=== PATIENT | female | born 1955 | race Caucasian/White ===

== ENCOUNTER 2023-02-09 13:46 | Outpatient (CLI) | payer OTHER, MEDICAID, SELFPAY ==
--- NOTE | 2023-02-09 13:15 | DI.RAD_ITS ---
Exam(s) XR SHOULDER RT COMPLETE 2+V EXAM: XR SHOULDER RT COMPLETE 2+V CLINICAL HISTORY: R shoulder pain. TECHNIQUE: 2D digital imaging was performed of the right shoulder. Two images were obtained. AP an d axillary views were obtained. COMPARISON: No exams were available for comparison FINDINGS: BONES: No acute fracture is present. No bony destructive lesion is seen. JOINTS: No dislocation present. Degenerative changes are seen at both the acromioclavicular and gleno humeral joints characterized by joint space narrowing and bony hypertrophy. The findings are most ma rked at the AC joint. SOFT TISSUE: There is a tiny well corticated osseous density at the glenohumeral joint. This appears old. IMPRESSION: Degenerative changes of the shoulder as described. DATA REPOSITORY: RADIATION DOSE DELIVERED:
== END 2023-02-09 13:47 | disposition home or self-care (01) ==
LOC: DIORS 13:46
PROVIDERS: PCP Family Medicine; Referring Provider Family Medicine; Visit Provider Student in an Organized Health Care Education/Training Program
DX: M75.101 Unspecified rotator cuff tear or rupture of right shoulder, not specified as traumatic (principal); M19.011 Primary osteoarthritis, right shoulder; M75.21 Bicipital tendinitis, right shoulder
CPT/HCPCS: 99204; 73030

== ENCOUNTER 2023-02-19 07:26 | Day surgery (SDC) | payer OTHER, MEDICAID, SELFPAY ==
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
--- NOTE | 2023-02-19 07:24 | W.PM.OP ---
Date of service: 02/19/23 Time of Service: 11:00 Operative Note Operative Note DATE OF PROCEDURE: 02/19/23 PRE-OP DIAGNOSIS: Right: 1. Rotator cuff tear 2. LHB tendinopathy 3. Bursitis 4. Impingement POST-OP DIAGNOSIS: same PROCEDURE: Right: 1. Rotator cuff repair, CPT# 58329. This involved repair of the [subscapularis and] supraspinatus using anchors and sutures to reattach the rotator cuff back to the footprint of the [lesser and] greater tuberosity. 2. Arthroscopic biceps tenodesis, CPT# 53218. This involved arthroscopically suturing and reattaching the long head of the biceps tendon to the proximal humerus at the superior margin of the bicipital groove with a screw at the correct tension. 3. Extensive debridement, CPT# 02160. This involved using arthroscopic hand instruments, power instruments, and radiofrequency instruments to release the long head of the biceps tendon and debride areas of labral tearing, synovitis[, and chondromalacia about the biceps groove] within the glenohumeral joint anteriorly, superiorly and posteriorly. 4. Subacromial decompression with partial acromioplasty, CPT# 13023. This involved using arthroscopic power instruments and a radiofrequency wand to complete a bursectomy and smooth the undersurface of the acromion. The reproductive healthcare assistant was medically required in order to help assist in techniques above, which require positioning the arm, holding the arthroscope, and manipulating multiple instruments and sutures at the same time. This cannot be done without the help of an experienced reproductive healthcare assistant. SURGEON: Nicolas Martin TOOL AND DIE DESIGNER: Coby Andino ANESTHESIA TYPE: General LMA/ETT and Primary Nerve Block Refer to Anesthesia Record ESTIMATED BLOOD LOSS: 10 PATHOLOGY: none sent COMPLICATIONS: None Patient was transported to: PACU Patient's condition: stable Implants: Arthrex: 4.75mm SwiveLocks x [ ] Indications: The patient was diagnosed with the above conditions and appropriately indicated for surgical intervention. Please see complete medical record for details. Findings: Exam under anesthesia: [] Glenohumeral joint: [] Subacromial space: [] Procedure Description: In the operating room, general anesthesia was induced. Bilateral shoulders were examined. The patient was positioned in the beachchair position. All bony prominences were well-padded. Preoperative antibiotics were administered. The shoulder was prepped and draped in the usual sterile fashion. The correct patient, procedure, and side of the procedure were all verified prior to incision. Starting through the posterior portal a standard complete diagnostic arthroscopy was performed of the glenohumeral joint including inspection of the long head of the biceps, anterior and superior labrum, subscapularis tendon, supraspinatus and infraspinatus tendons, and axillary recess. The glenoid and humeral head cartilage as well as the posterior labrum were inspected from an anterior viewing portal. Significant findings and interventions noted above. [The biceps tendon was released from the superior labrum using arthroscopic scissors]. [Insert subscap repair] [Insert arthroscopic biceps tenodesis] [Insert subacromial decompression] [Insert supraspinatus repair] The shoulder was drained of arthroscopic fluid. All portal sites were copiously irrigated. These incisions were closed using 3-0 Monocryl in a buried fashion and then covered with Mastisol, Steri-Strips, Xeroform, dry gauze, and ABDs. The dressings were covered and secured with Medipore tape. The operative extremity was placed into a sling for immobilization. The patient awoke from anesthesia without complication and was transferred to the recovery room in a stable condition.
[2023-02-19 08:11] VITALS: BP 94/78; PULSE 82; RESP 18; TEMP 36.3; O2SAT 95
[2023-02-19] MEDS: Lactated Ringers 1,000 ML 30 ML IV (08:57)
--- NOTE | 2023-02-19 09:01 | W.ANESPRE ---
General Info Date of Service Date Performed: 02/19/23 Height: 5 ft 1 in Weight: 72.5 kg Body Mass Index (BMI): 30.2 Surgical Procedure: Operation Date: 02/19/23 10:10 Proposed Procedure Side Surgeon p Shoulder Rotator Cuff Arthroscopic w/Extensive Debridement, Biceps Tenodesis, Subacromial Decompression and Possible Allograft Superior Capsular Reconstruction Right Nicolas Martin MD Meds Allergies and Home Medications Allergies Allergy/AdvReac Type Severity Reaction Status Date / Time penicillin V Allergy Verified 02/19/23 08:04 Home Medication Medication Instructions Recorded empagliflozin 10 mg tablet 10 mg PO DAILY 02/09/23 (Jardiance) lamotrigine 100 mg tablet 100 mg PO DAILY 02/09/23 (Lamictal) buspirone 10 mg tablet 10 mg PO TID 02/11/23 carvedilol 6.25 mg tablet 6.25 mg PO BID 02/11/23 diclofenac sodium 1 % topical gel 2 g topical QID 02/11/23 insulin aspart U-100 100 unit/mL 15 unit subcut TID 02/11/23 (3 mL) subcutaneous pen (Novolog FlexPen U-100 Insulin aspart) insulin detemir U-100 100 unit/mL 30 unit subcut QHS 02/11/23 (3 mL) subcutaneous pen (Levemir FlexTouch U-100 Insulin) lamotrigine 25 mg tablet (Lamictal) 50 mg PO DAILY 02/11/23 methylphenidate HCl 10 mg tablet 10 mg PO BID 02/11/23 modafinil 100 mg tablet 100 mg PO DAILY 02/11/23 omeprazole 20 mg capsule,delayed 20 mg PO DAILY 02/11/23 release vilazodone 10 mg tablet (Viibryd) 10 mg PO DAILY 02/11/23 aspirin 81 mg tablet,delayed 81 mg PO DAILY prevent blood clot 02/19/23 release 7 days #7 tabs dulaglutide 3 mg/0.5 mL 3 mg subcut QWEEK 02/19/23 [facility] metformin 1,000 mg tablet 1,000 mg PO BID 02/19/23 naproxen 250 mg tablet 250 - 500 mg PO BID PRN #40 tabs 02/19/23 oxycodone 5 mg tablet 5 - 10 mg PO Q4H PRN moderate to 02/19/23 severe pain #18 tabs Current Visit Medications: Current Medications Generic Name Dose Route Start Last Admin Trade Name Freq PRN Reason Stop Dose Admin Ringer's Solution 1,000 mls @ 30 mls/hr 02/19/23 06:00 02/19/23 08:57 IV 03/20/23 23:59 30 mls/hr INFUSION ADELFO Administration Cefazolin Sodium/Dextrose 2 gm in 50 mls @ 100 mls/hr 02/19/23 06:00 Ancef Duplex IVPB 03/20/23 23:59 PREOP ADELFO IV Miscellaneous Supplies 1 each 02/19/23 06:00 Iv Access IV 03/20/23 23:59 DIRECTED ADELFO Oxycodone HCl 0 mg 02/19/23 07:20 Oxycodone 5 Mg Tab PO Q3H PRN PRN Pain Sodium Chloride 0 ml 02/19/23 06:00 Normal Saline Flush 10 Ml Syr IV 03/20/23 23:59 PRN PRN Sodium Chloride 0 ml 02/19/23 06:00 Normal Saline 10 Ml Vial IJ 03/20/23 23:59 DIRECTED PRN Sterile Water 0 ml 02/19/23 06:00 Water,Injection,Sterile 10 Ml Vial IJ 03/20/23 23:59 DIRECTED PRN PFSH Active Problems Active Problems: Problem Status Onset Code Rotator cuff tear, right M75.101 Arthritis of right glenohumeral joint M19.011 Tendonitis of long head of biceps brachii of right shoulder M75.21 Medical History Medical History (Updated 02/19/23 @ 08:52 by Cy Perdomo) Diabetes type 2, controlled Sleep apnea Surgical History Surgical History (Updated 02/19/23 @ 08:18 by Cy Perdomo) Stented coronary artery Trigger finger of all digits of both hands Tobacco Smoking/Tobacco Use Status: Former Tobacco Use Alcohol Alcohol Intake: never Substance Use Substance use type: does not use Vital Signs and Lab Results Vital Signs Most Recent Vital Signs in EMR: Most Recent Vital Signs Temp Pulse Resp BP Pulse Ox 36.3 C L 82 18 94/78 L 95 02/19/23 08:11 02/19/23 08:11 02/19/23 08:11 02/19/23 08:11 02/19/23 08:11 Point of Care Results Point of Care Results: Finger Stick Blood Glucose 161 02/19/23 08:22 Lab Results Blood Type / Crossmatch: No Data to Display Complete Blood Count: No Data to Display Complete Metabolic Panel: No Data to Display Liver Function Panel: No Data to Display Coagulation Panel: No Data to Display Cardiac Panel: No Data to Display Arterial Blood Gas: No Data to Display Venous Blood Gas: No Data to Display Pancreas Panel: No Data to Display Thyroid Panel: No Data to Display Infectious Disease: No Data to Display Blood Cultures: No Data to Display Toxicology Panel: No Data to Display Anesthesia Assessment and Plan Anesthesia History Personal History: No History of Anesthesia Complications Family History: No Family History of Anesthesia Complications Exercise Tolerance Exercise Tolerance: Metabolic Equivalents>4 Pertinent Negatives Pertinent Negatives: No Symptoms of GERD, No Major Cardiovascular Symptoms or Complaints, No Major Pulmonary Symptoms or Complaints and No History of CVA/TIA Cardiac & Pulmonary Exam Cardiac Exam: Normal S1/S2 Heart Sounds Pulmonary Exam: Clear Bilateral Breath Sounds Implantable Cardiac Device Does patient have a Pacemaker or an ICD?: No Airway Exam Known Difficult Airway: No Mallampati Class: 2 Mouth Opening: Normal (> 3cm) Thyromental Distance: Greater than 3 cm Neck Range of Motion: Full ROM Neck Circumference: Normal Teeth Condition: Generalized Poor Dentition and Removable Dentures/Plates Upper Tooth Numberin. Missing 2. Missing 3. Missing ASA Classification ASA Score: ASA 2 Emergency Case?: No NPO Status NPO Status: NPO Clears >2 hours, Solids >8 hours Anesthesia Plan Resuscitation Status: Full Code Anesthesia Technique: General Anesthesia Airway Planned: Endotracheal Tube Pain Management: Surgeon and patient request nerve block Monitors Used: Standard Monitors
[2023-02-19 10:32] VITALS: BP 123/67; PULSE 73; RESP 16; TEMP 36.7; O2SAT 95
[2023-02-19 10:42] VITALS: BP 109/66; PULSE 73; RESP 20; TEMP 36.5; O2SAT 96
[2023-02-19 12:15] VITALS: BMI 30.2
--- NOTE | 2023-02-19 12:35 | W.ANESNERVE ---
Nerve Block Single Injection Procedure Date and Time Date Performed: 02/19/23 Procedure Start: 10:31 Location Where Procedure Performed Procedure Location: Day Surgery Unit Reason Performed: Postoperative Analgesia Requesting Provider: Nicolas Martin Timeout Performed Timeout Performed: Yes Monitoring Used ECG, Blood Pressure and SpO2 Sterility Sterility: Hand Hygiene, Surgical Cap, Surgical Mask, Sterile Gloves and Chlorhexidine Sedation Given During Procedure Sedation Given (Indicate Dose Given): Versed IV Dose:: 2 mg Patient Mental Status Patient Mental Status: Sedate with meaningful communication Nerve Block 1st Nerve Block: Laterality: Right Block Type: Interscalene Ultrasound Image Saved?: Yes Needle / Catheter Used: 100mm SonoPlex II Local Anesthetic Bolus (Indicate Dose Given): Lidocaine used for local infiltration of skin, Bupivacaine 0.5% Dose:: 10 ml and Exparel Dose:: 10 ml Additives (Indicate Dose Given): None Ultrasound: Sterile probe cover and gel used Nerve Stimulator: No twitch or parasthesia noted < 0.5 mA Paresthesia: None Procedure Tolerated: No Complications and Patient tolerated well Procedure Outcome: Successful Performed By: Carlton Burton
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
[2023-02-19 12:40] VITALS: BP 122/62; PULSE 70; RESP 16; O2SAT 97
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
== END 2023-02-19 13:41 | disposition home or self-care (01) ==
PROVIDERS: PCP Family Medicine; Visit Provider Student in an Organized Health Care Education/Training Program
DX: M75.101 Unspecified rotator cuff tear or rupture of right shoulder, not specified as traumatic (principal); M19.011 Primary osteoarthritis, right shoulder; Z53.8 Procedure and treatment not carried out for other reasons
CPT/HCPCS: 76942; J1100; J2250; J2370; J2405; J2704

== ENCOUNTER 2023-03-12 07:16 | Day surgery (SDC) | payer OTHER, MEDICAID, SELFPAY ==
[2023-03-12] VITALS (13 sets, daily range): BP systolic 87–107; BP diastolic 50–73; PULSE 68–77; RESP 14–21; TEMP 36.1–36.5; O2SAT 93–99; BMI 30.2
--- NOTE | 2023-03-12 07:16 | ROE_ITS ---
Date of service: 03/12/23 Time of Service: 09:00 Operative Note Operative Note DATE OF PROCEDURE: 03/12/23 PRE-OP DIAGNOSIS: Right: 1. Rotator cuff tear 2. LHB tendinopathy 3. Bursitis POST-OP DIAGNOSIS: same PROCEDURE: Right: 1. Rotator cuff repair, CPT# 75303. This involved repair of the subscapularis and supraspinatus using anchors and sutures to reattach the rotator cuff back to the footprint of the lesser and greater tuberosity. 2. Arthroscopic biceps tenodesis, CPT# 85010. This involved arthroscopically suturing and reattaching the long head of the biceps tendon to the proximal humerus at the superior margin of the bicipital groove with a screw at the correct tension. 3. Extensive debridement, CPT# 94033. This involved using arthroscopic hand instruments, power instruments, and radiofrequency instruments to release the long head of the biceps tendon and debride areas of labral tearing, synovitis, and chondromalacia about the biceps groove and greater tuberosity, released the scarred subscapularis from anterior capsule, and release the [facility] L working within the glenohumeral joint anteriorly, superiorly and posteriorly. 4. Subacromial decompression with partial acromioplasty, CPT# 80875. This involved using arthroscopic power instruments and a radiofrequency wand to complete a bursectomy and smooth the undersurface of the acromion. The veterinary technician assistant was medically required in order to help assist in techniques above, which require positioning the arm, holding the arthroscope, and manipulating multiple instruments and sutures at the same time. This cannot be done without the help of an experienced veterinary technician assistant. SURGEON: Nicolas Martin HCC CODERS: Coby Andino ANESTHESIA TYPE: General LMA/ETT and Primary Nerve Block Refer to Anesthesia Record ESTIMATED BLOOD LOSS: 10 PATHOLOGY: none sent COMPLICATIONS: None Patient was transported to: PACU Patient's condition: stable Implants: Arthrex: 4.75mm SwiveLocks x 5 Indications: The patient was diagnosed with the above conditions and appropriately indicated for surgical intervention. Please see complete medical record for details. Findings: Exam under anesthesia: Full range of motion, no instability Glenohumeral joint: Moderate central glenoid chondromalacia and diffuse mild humeral head and peripheral glenoid chondromalacia. Significant biceps tendon intra-articular partial tearing, SLAP tear biceps anchor injection synovitis, flattening and medial subluxation of the biceps tendon out of the bicipital groove and into an moderate sized upper portion lateral subscapularis tear. Chronic scarring subscapularis anteriorly to capsule and poor quality tendon tissue. Obvious full-thickness supraspinatus tear with reasonable appearing capsule and cable. No significant infraspinatus tearing. Subacromial space: Moderate bursitis. Full-thickness moderately retracted subacute appearing supraspinatus crescent type tear starting anteriorly at the bicipital groove and stopping with minimal involvement of the infraspinatus posteriorly. Chronic fibrinous changes and soft tissue on the exposed greater tuberosity. Thinning of the supraspinatus laterally with fraying and better, actually reasonably good tissue centrally and medially. Procedure Description: In the operating room, general anesthesia was induced. Bilateral shoulders were examined. The patient was positioned in the beachchair position. All bony prominences were well-padded. Preoperative antibiotics were administered. The shoulder was prepped and draped in the usual sterile fashion. The correct patient, procedure, and side of the procedure were all verified prior to incision. Starting through the posterior portal a standard complete diagnostic arthroscopy was performed of the glenohumeral joint including inspection of the long head of the biceps, anterior and superior labrum, subscapularis tendon, supraspinatus and infraspinatus tendons, and axillary recess. The glenoid and humeral head cartilage as well as the posterior labrum were inspected from an anterior viewing portal. Significant findings and interventions noted above. Working through an anterior cannula, a single portal technique combined for the subscapularis and biceps tenodesis was done with the subscapularis thoroughly mobilized and free from anterior capsule, [facility] L released, and subscapularis poor tissue planned to be incorporated as best possible into a single suture anchor at the prepared lesser tuberosity bicipital groove junction. The biceps tendon was debrided of partial tearing. All-arthroscopic suprapectoral biceps tenodesis was done using a Loop N Tack method with a SutureTape FiberLink cinched around and through the tendon. The biceps was tenotomized from the labrum and fixated with a suture anchor between the exposed lesser tuberosity and the superior margin of the bicipital groove. Care was taken to direct the biceps tendon lateral to the suture anchor and tension unit resting at in a reduced appropriate position. A knotless SwiveLock anchor was used. The repair suture was then shuttled around the upper lateral margin of the subscapularis and back through the anchor eyelet and repair completed using the knotless tensioning mechanism. There was no displacement of the repair through external rotation. No additional repair was done given the significant degenerative tissue quality through the remainder of the subscapularis to avoid compromising motion for questionable improvements in healing. Biceps tendinosis stable nicely reduced superior aspect of the bicipital groove. Starting through the posterior portal, the arthroscope was directed into the subacromial space. A lateral 50 yard line lateral portal was created. A combination of power instruments and a radiofrequency ablator were used to debride bursitis anteriorly, posteriorly, and laterally as well as expose and smooth bone spurring on the undersurface of the acromion. The coracoacromial ligament was minimally released. The bursectomy was completed viewing laterally and working from posteriorly and the rotator cuff was thoroughly inspected with findings noted above. The supraspinatus tear was debrided to healthy tissue margin, which was thin laterally but quite good slightly medially. There was much more tissue than expected available for repair and initial excursion was reasonable, so no anabell nstruction was done. The supraspinatus was mobilized using the liberator's elevators medially. Excursion was excellent without undue tension. The greater tuberosity was thoroughly debrided and prepared to optimize bone and tendon healing. A modified speed bridge was done optimizing arm position and suture anchor configuration with the anterior and posterior medial row anchors placed and the fiber tapes individually passed at the appropriate level through the medial good portion of the supraspinatus. Many suture tape FiberLink's were then placed between the anchors and most posteriorly incorporating the tear involving the infraspinatus fibers wrapping around posteriorly. A tape from each anchor and FiberLink was then secured to anterior and posterior lateral anchors with appropriate tension on the repair. The repair reduction was good with excellent tissue bone compression and demonstrated excellent stability through range of motion testing. The shoulder was drained of arthroscopic fluid. All portal sites were copiously irrigated. These incisions were closed using 3-0 Monocryl in a buried fashion and then covered with Mastisol, Steri-Strips, Xeroform, dry gauze, and ABDs. The dressings were covered and secured with Medipore tape. The operative extremity was placed into a sling for immobilization. The patient awoke from anesthesia without complication and was transferred to the recovery room in a stable condition.
--- NOTE | 2023-03-12 07:16 | PDOC.DSDIS_ITS ---
Date of service: 03/12/23 Time of Service: 12:00 Discharge Plan Disposition Patient Disposition: Home Discharge Details Attending Provider: Nicolas Martin Primary Care Provider: STEPH GARCIA Home Meds and New Rx's Prescriptions: New naproxen 250 mg tablet 250 - 500 mg PO BID PRNQty: 40 0RF Rx Instructions: take with a meal aspirin 81 mg tablet,delayed release (DR/EC) 81 mg PO DAILY 7 Days Qty: 7 0RF oxycodone 5 mg tablet 5 - 10 mg PO Q4H MDD 30 mg PRN (Reason: moderate to severe pain) Qty: 18 0RF Continued Jardiance 10 mg tablet 10 mg PO DAILY lamotrigine [Lamictal] 100 mg tablet 100 mg PO HS carvedilol 6.25 mg tablet 6.25 mg PO HS Rx Instructions: must administer with a meal/food modafinil 100 mg tablet 100 mg PO DAILY insulin aspart U-100 [Novolog FlexPen U-100 Insulin] 100 unit/mL (3 mL) insulin pen 15 unit subcut TID Rx Instructions: sliding scale Levemir FlexTouch U-100 Insuln 100 unit/mL (3 mL) insulin pen 30 unit subcut QHS diclofenac sodium 1 % gel 2 g topical QID Rx Instructions: apply to single elbow, wrist or hand; for hand includes palm/fingers/back of hand omeprazole 20 mg capsule,delayed release(DR/EC) 20 mg PO HS vilazodone [Viibryd] 10 mg tablet 10 mg PO DAILY Rx Instructions: must administer with a meal/food methylphenidate HCl 10 mg tablet 10 mg PO BID lamotrigine [Lamictal] 25 mg tablet 50 mg PO HS metformin 1,000 mg Tablet 1,000 mg PO BID Trulicity 3 mg/0.5 mL Pen Injector 3 mg SUBCUT QWEEK naproxen 250 mg tablet 250 - 500 mg PO BID PRNQty: 40 0RF Rx Instructions: take with a meal oxycodone 5 mg tablet 5 - 10 mg PO Q4H MDD 30 mg PRN (Reason: moderate to severe pain) Qty: 18 0RF atorvastatin 20 mg tablet 20 mg PO HS lisinopril 5 mg tablet 5 mg PO HS furosemide 20 mg tablet 20 mg PO QAM Discharge Instructions Additional Instructions: Surgery: Right shoulder arthroscopy with rotator cuff repair (supraspinatus & subscapularis), biceps tenodesis, extensive debridement, and subacromial decompression. Activity: For 6 weeks, you should keep your arm at your side in a neutral position at all times except for physical therapy. Do not try to lift or raise your arm using your own muscles. You should use the sling whenever you are out of the house. You may have to adjust the abduction pillow or remove it for comfort. At home it is best to remove the sling and rest the arm on a pillow at your side or support the operative side with your other hand. You may allow the arm to dangle at your side. A physical therapy prescription will be sent electronically to begin in about 3 weeks. Prescriptions: Aspirin 81 mg take 1 daily to prevent a blood clot for 7 days Naproxen 250 mg take 1-2 every 12 hours with a meal as needed for moderate pain Oxycodone 5 mg take 1-2 every 4-6 hours as needed for severe pain You may use lywb-lep-[id number] Tylenol (acetaminophen) as needed for mild pain. These pain medications may be taken all at once or in different combinations as needed. Also, recommend Colace (docusate) as a stool softener as surgery and pain medicine cause constipation. You may try iqop-[id number] diphenhydramine (Benadryl) 25-50 mg nightly as a sleep aid Dressings: Remove shoulder bandage after 3 days. Leave the sticky Steri-Strips in place until they fall off or remove them after you shower. Cover the incisions with Band-Aids or leave them open to air. You may shower after 5 days. Follow-up: 10-[address] Martin You may take off the leg compression stockings this evening at home. You may also leave them on a few days longer if you have a history of leg swelling or edema. Let us know right away if you develop any redness, drainage, fevers, chest pain, or trouble breathing. Do not drink alcohol or drive for at least 24 hours after anesthesia. Please call the office during business hours with any questions or concerns. Stand Alone Forms: Anesthesia Discharge Inst., Anes.Nerve Block Instructions, Bill Gonzalez ([facility]) Referrals: Nicolas Martin MD [ [facility] STAFF PHYSICIAN] - 03/23/23 9:00 am Discharge Orders Discharge Orders: Discharge Order (Routine); Ordered 03/12/23 Ordered By: Nicolas Martin DS: Diagnosis Discharge Diagnosis (1) Rotator cuff tear, right: Status: Acute
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
[2023-03-12] MEDS: Lactated Ringers 1,000 ML 30 ML IV (08:26)
--- NOTE | 2023-03-12 08:43 | W.ANESNERVE ---
Nerve Block Single Injection Procedure Date and Time Date Performed: 03/12/23 Procedure Start: 08:38 Location Where Procedure Performed Procedure Location: Day Surgery Unit Reason Performed: Postoperative Analgesia Requesting Provider: Nicolas Martin Timeout Performed Timeout Performed: Yes Monitoring Used ECG, Blood Pressure and SpO2 Sterility Sterility: Hand Hygiene, Surgical Cap, Surgical Mask, Sterile Gloves and Chlorhexidine Sedation Given During Procedure Sedation Given (Indicate Dose Given): Versed IV Dose:: 2 mg and Precedex IV Dose:: 8 mcg Patient Mental Status Patient Mental Status: Other (very sleepy with midaz, arouses and communicates with stimulation.) Nerve Block 1st Nerve Block: Laterality: Right Block Type: Interscalene Ultrasound Image Saved?: Yes Needle / Catheter Used: 100mm SonoPlex II Local Anesthetic Bolus (Indicate Dose Given): Lidocaine used for local infiltration of skin, Bupivacaine 0.5% Dose:: 12 mL and Exparel Dose:: 8 mL Additives (Indicate Dose Given): None Ultrasound: Sterile probe cover and gel used Nerve Stimulator: Supplement to Ultrasound use and No twitch or parasthesia noted < 0.5 mA Paresthesia: None Procedure Tolerated: No Complications Procedure Outcome: Successful Procedure Comment: would consider less midaz in the future. Performed By: Toni Cool
[2023-03-12] MEDS: ceFAZolin 2 GM/50 ML BAG IVPB (09:07)
[2023-03-12] MEDS: HYDROmorphone 2 MG/ML SYR IVP ×3 (11:37→12:01)
[2023-03-12] MEDS: Normal Saline 10 ML VIAL IJ (11:37)
--- NOTE | 2023-03-12 11:39 | W.ANESPOSTOP ---
Postoperative Evaluation Date, Time and Location Date Performed: 03/12/23 Time Performed: 11:39 Patient Location: PACU Vital Signs Most Recent Imported Vital Signs: Most Recent Vital Signs Temp Pulse Resp BP Pulse Ox 36.4 C L 68 17 103/60 99 03/12/23 11:11 03/12/23 11:11 03/12/23 11:11 03/12/23 11:11 03/12/23 11:11 Pain Score Most Recent Pain Score: Most Recent Pain Score Pain Level 8 03/12/23 08:30 Assessment Mental Status: Awake (Alert & Oriented to Patient Baseline) Airway and Respiratory Function: Patent airway with normal (patient baseline) respiratory exam Cardiovascular Function: Hemodynamically Stable Hydration Status: Adequately Hydrated Nausea & Vomiting: No Nausea or Vomiting Pain: Pain is Moderate or Severe (in the area of bicep work. arm is weak and numb otherwise. ) Postoperative Pain Management: Pain being addressed with medication Peripheral Nerve Block: Regional nerve block not resolved at time of post operative discharge
== END 2023-03-12 13:54 | disposition home or self-care (01) ==
PROVIDERS: PCP Family Medicine; Visit Provider Student in an Organized Health Care Education/Training Program
PROC: (CPT 29827; principal; 2023-03-12 08:45)
DX: M75.101 Unspecified rotator cuff tear or rupture of right shoulder, not specified as traumatic (principal); M75.51 Bursitis of right shoulder; M75.21 Bicipital tendinitis, right shoulder; M94.211 Chondromalacia, right shoulder; E11.9 Type 2 diabetes mellitus without complications
CPT/HCPCS: 29827; 29826; 29828; 29823; 76942; J0131; J0690; J1100; J1170; J1885; J2250; J2370; J2405

== ENCOUNTER → 2023-03-23 08:37 | Outpatient (BNVA) | payer OTHER, MEDICAID, SELFPAY | PROVIDERS: PCP Family Medicine; Referring Provider Family Medicine; Visit Provider Physician Assistant | DX: Z47.89 Encounter for other orthopedic aftercare (principal); M25.511 Pain in right shoulder ==

== ENCOUNTER → 2023-06-01 10:54 | Outpatient (BNVA) | payer OTHER, MEDICAID, SELFPAY | PROVIDERS: PCP Family Medicine; Referring Provider Family Medicine; Visit Provider Student in an Organized Health Care Education/Training Program | DX: Z47.89 Encounter for other orthopedic aftercare (principal); M75.101 Unspecified rotator cuff tear or rupture of right shoulder, not specified as traumatic ==

== ENCOUNTER 2024-12-25 15:38 | Outpatient (CLI) | payer MEDICARE, SELFPAY ==
--- NOTE | 2024-12-25 13:45 | DI.RAD_ITS ---
Exam(s) XR HIP LT COMPLETE AP PELVIS EXAM: XR HIP LT COMPLETE AP PELVIS CLINICAL HISTORY: LEFT HIP PAIN. TECHNIQUE: 2D digital imaging was performed. Two views. COMPARISON: No exams were available for comparison FINDINGS: BONES: No acute fracture is present. No bony destructive lesion is seen. JOINTS: No dislocation present. The SI joints and pubic symphysis are intact. The hip joint spaces ar e maintained. There is acetabular spurring. Enthesophytes are noted at the iliac wings and greater trochanters. SOFT TISSUE: Normal. IMPRESSION: Mild degenerative changes of both hips. DATA REPOSITORY: RADIATION DOSE DELIVERED:
== END 2024-12-25 15:39 | disposition home or self-care (01) ==
LOC: DIORS 15:39
PROVIDERS: PCP Family Medicine; Referring Provider Family Medicine; Visit Provider Physician Assistant
DX: M16.12 Unilateral primary osteoarthritis, left hip; M70.62 Trochanteric bursitis, left hip; E11.9 Type 2 diabetes mellitus without complications
CPT/HCPCS: 99214; 73502

== ENCOUNTER → 2025-01-09 14:50 | Outpatient (BNVA) | payer MEDICARE, SELFPAY | PROVIDERS: PCP Family Medicine; Referring Provider Family Medicine | DX: M16.12 Unilateral primary osteoarthritis, left hip (principal) | CPT/HCPCS: 20611; J1010 ==